=== PATIENT | male | born 1970 | race Caucasian/White ===

== ENCOUNTER → 2024-05-27 | Outpatient (CLI) | payer OTHER | LOC: LAB 09:10 | DX: Z13.220 Encounter for screening for lipoid disorders (principal) ==

== ENCOUNTER → 2024-07-20 | Day surgery (SDC) | payer OTHER ==
[~2024-07-20] MED LIST: fentaNYL 100 MCG/2 ML VIAL ONE
== END | disposition home or self-care (01) ==
LOC: MSO 07:30
DX: Z12.11 Encounter for screening for malignant neoplasm of colon (principal); Z80.0 Family history of malignant neoplasm of digestive organs
CPT/HCPCS: 00812; J2704; J3010; J7120